=== PATIENT | male | born 1955 | race Caucasian/White ===

== ENCOUNTER 2020-06-29 08:22 | Day surgery (SDC) | payer OTHER ==
--- NOTE | 2020-06-22 08:23 | HP ---
DATE OF SURGERY: 06/29/2020 HISTORY OF PRESENT ILLNESS: The patient presents with complaints of umbilical hernia. He has some discomfort in the umbilical region and does have a hernia that will reproduce today on exam. It bothers him and he wishes to have this fixed. PAST MEDICAL HISTORY: None. PAST SURGICAL HISTORY: Knee surgery. ALLERGIES: NKDA. MEDICATIONS: Tylenol, hydroxyzine, Aleve, Topamax as needed. FAMILY HISTORY: None reported. SOCIAL HISTORY: Reports chewing tobacco and one can of alcohol per day. REVIEW OF SYSTEMS: CONSTITUTIONAL: Denies fever or chills. CHEST: Denies shortness of breath. CVS: Denies chest pain. ABDOMEN: Reports umbilical hernia pain. Denies nausea, vomiting, diarrhea, constipation or rectal bleeding. INTEGUMENTARY: Negative. PHYSICAL EXAMINATION: GENERAL: No acute distress. CHEST: Nonlabored. No shortness of breath. CVS: Regular rate and rhythm. ABDOMEN: Soft, reducible umbilical hernia. EXTREMITIES: No edema. NEUROLOGIC: Alert. PSYCHIATRIC: Appropriate. IMPRESSION: Symptomatic umbilical hernia. PLAN: Umbilical hernia repair with mesh by Dr. Diego Garcia. As dictated by April Bianchi NP.
[~2020-06-29 08:22] MED LIST: Lactated Ringers 1,000 ML IV ONE; Sensorcaine 0.25% 10 ML ONE
[2020-06-29] MEDS ORDERED: Lactated Ringers 1,000 ML IV SCH (09:00)
[2020-06-29] MEDS ORDERED: CEFAZOLIN 2 GM-D5W BAG** 2 GM/50 ML ML IV SCH (09:00)
[2020-06-29 09:53] LABS: ALBUMIN 4.2 g/dL (3.5-5.0); ALKALINE PHOSPHATASE 120 U/L (38-126); ANION GAP 10.1 MEQ/L (5-15); BLOOD UREA NITROGEN 14 mg/dL (9-20); CHLORIDE 107 mmol/L (98-107); Calcium 9.5 mg/dL (8.4-10.2); Carbon Dioxide 26 mmol/L (22-30); Creatinine 1 0.93 mg/dL (0.66-1.25); EST GLOMERULAR FILTRATION RATE > 60.0 ML/MIN; Glucose 132 mg/dL (74-106); Potassium 3.9 mmol/L (3.5-5.1); SGOT/AST 22 U/L (17-59); SGPT/ALT 21 U/L (0-50); SODIUM 139 mmol/L (137-145); Total Protein 6.9 g/dL (6.3-8.2)
[2020-06-29] MEDS ORDERED: Versed 2 MG/2 ML Injection ONE (10:05)
[2020-06-29] MEDS ORDERED: SUBLIMAZE 250 MCG/5 ML ONE (10:05)
[2020-06-29] MEDS ORDERED: Quelicin Fliptop 200 MG/10 ML ONE (10:05)
[2020-06-29] MEDS ORDERED: Zemuron 100 MG/10 ML ONE (10:05)
[2020-06-29] MEDS ORDERED: DIPRIVAN 200 MG/20 ML IV ONE (10:05)
[2020-06-29] MEDS ORDERED: KEFZOL 1 GM ONE (11:27)
[2020-06-29] MEDS ORDERED: BRIDION 200MG/2ML IV ONE (11:55)
[2020-06-29] MEDS ORDERED: MORPHINE SULFATE 10 MG/ML ONE (12:23)
[2020-06-29] MEDS ORDERED: SUBLIMAZE 100 MCG/2 ML ONE (12:42)
[2020-06-29] MEDS ORDERED: Lactated Ringers 1,000 ML IV ONE (12:45)
--- NOTE | 2020-06-29 12:56 | OP ---
SURGERY DATE/TIME: 06/29/2020 1132 PREOPERATIVE DIAGNOSIS: Symptomatic incarcerated umbilical hernia. POSTOPERATIVE DIAGNOSIS: Symptomatic incarcerated umbilical hernia. PROCEDURE: Umbilical herniorrhaphy repair primary, no mesh. SURGEON: Diego Garcia M.D. ANESTHESIA: General. COMPLICATIONS: None. CONDITION: Stable. INDICATION: The patient has a moderate sized symptomatic umbilical hernia, possible mesh was discussed preoperatively. DESCRIPTION OF PROCEDURE: He was taken to surgery. General anesthetic. Routine prep and drape. There was incarceration of omentum that was reduced. Hernia sac was reduced. The defect was actually 1.75 cm by 1 cm. It was able to be pulled together transversely without tension with six sutures of 0 Prolene which were all placed and all tied down. It was reinforced with two figure-of-8 0 Vicryl on top of this. 4-0 Vicryl, compressive umbilical dressing, Steri- Strips. The patient tolerated the procedure satisfactorily.
[2020-06-29] MEDS ORDERED: TYLENOL EXTRA STRENGTH 500 MG PO STA (14:17)
[2020-06-29 15:01] VITALS: BP 148/86; PULSE 62; O2SAT 96
== END 2020-06-29 14:35 | disposition home or self-care (01) ==
LOC: SDC 08:22
PROVIDERS: ATTEND Surgery
DX: K42.0 Umbilical hernia with obstruction, without gangrene (principal); Z79.899 Other long term (current) drug therapy
CPT/HCPCS: 36415; 80053; 93005; J0330; J0690; J2250; J2270; J2704; J3010; L0625; A9270-GY

== ENCOUNTER 2022-01-04 09:37 | Emergency (ER) | payer OTHER ==
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
[2022-01-04 10:51] VITALS: BP 156/87; PULSE 66
[2022-01-04] MEDS ORDERED: Cyclobenzaprine 10 MG PO ONE (11:09)
[2022-01-04] MEDS ORDERED: PERCOCET TABLET 5/325MG PO STA (11:09)
[2022-01-04] MEDS ORDERED: Cyclobenzaprine 10 MG ONE (11:12)
[2022-01-04] MEDS ORDERED: PERCOCET TABLET 5/325MG ONE (11:12)
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
[2022-01-04 11:44] VITALS: O2SAT 99
== END 2022-01-04 12:18 | disposition home or self-care (01) ==
LOC: ED 09:37
DX: M54.2 Cervicalgia (principal); M54.6 Pain in thoracic spine; V53.5XXA Driver of pick-up truck or van injured in collision with car, pick-up truck or van in traffic accident, initial encounter; Z28.310 Unvaccinated for COVID-19; Z79.52 Long term (current) use of systemic steroids
CPT/HCPCS: 72125; 72128; 99285; A9270-GY

== ENCOUNTER 2022-02-05 11:37 | Emergency (ER) | payer OTHER ==
--- NOTE | 2022-02-05 12:17 | XRAY ---
Indication: Thumb erythema. Comparison: None 3 view left hand demonstrates punctate foreign body lateral to 1st MCP, mild 1st metacarpal multangular scaphoid degenerative changes, and radiocarpal joint space loss. No other bony, articular, or soft tissue abnormalities.
--- NOTE | 2022-02-05 12:36 | ERPHSYRPT ---
- History of Present Illness Source: patient Exam Limitations: no limitations Patient Subjective Stated Complaint: L hand injury 2 days ago Triage Nursing Assessment: pt to ED c/o L hand pain x2 days. pt states he jammed 5th finger on door when he tripped. rates 5/10 pain. limited ROM, noted swelling in L hand. pt states the steroid he took this morning might have brought swelling down slightly. Physician History: Pt hit L hand on door jam 2 days ago at his house when he tripped over his cat. Pt is R handed and denies other/previous injuries. Occurred: days ago (2 days ago) Method of Injury: fell (Tripped over cat) Severity of Pain-Max: moderate Severity of Pain-Current: mild Extremities Pain Location: hand: left Modifying Factors: Improves With: nothing, movement Associated Symptoms: none Allergies/Adverse Reactions: gabapentin [From Neurontin] Allergy (Verified 02/05/22 11:46) Rash Home Medications: Newton-3 Fatty Acids [Newton-3] 1,000 mg PO DAILY 02/05/22 [History] Hx Tetanus, Diphtheria Vaccination/Date Given: Yes Hx Influenza Vaccination/Date Given: No Hx Pneumococcal Vaccination/Date Given: No Immunizations Up to Date: Yes Travel Risk - International Travel Have you traveled outside of the country in past 3 weeks: No - Coronavirus Screening Are you exhibiting any of the following symptoms?: No Close contact with a COVID-19 positive Pt in past 14-21 Days: No - Vaccine Status Have you recieved a Covid-19 vaccination: No - Review of Systems Constitutional: No Symptoms Eyes: No Symptoms Ears, Nose, & Throat: No Symptoms Respiratory: No Symptoms Cardiac: No Symptoms Abdominal/Gastrointestinal: No Symptoms Skin: No Symptoms Neurological: No Symptoms Psychological: No Symptoms Endocrine: No Symptoms Hematologic/Lymphatic: No Symptoms Immunological/Allergic: No Symptoms - Past Medical History Pertinent Past Medical History: Yes Neurological History: Migraines ENT History: No Pertinent History Cardiac History: No Pertinent History Respiratory History: No Pertinent History Endocrine Medical History: Hypoglycemia Musculoskeletal History: No Pertinent History, Other GI Medical History: No Pertinent History History: No Pertinent History Psycho-Social History: No Pertinent History Male Reproductive Disorders: No Pertinent History Other Medical History: LEFT KNEE SURGERY 2004, TONSILLS AT AGE OF 9 Pt does not have any diagnosed kidney problems, but is going to be seeing a kidney specialist in the future. - Past Surgical History Past Surgical History: Yes Neuro Surgical History: No Pertinent History Cardiac: No Pertinent History Respiratory: No Pertinent History Gastrointestinal: No Pertinent History Genitourinary: No Pertinent History Musculoskeletal: Orthopedic Surgery Male Surgical History: No Pertinent History Other Surgical History: tonsilectomy. knee surgery 05 - Social History Smoking Status: Never smoker Exposure to second hand smoke: No Alcohol Use: None Drug Use: none Patient Lives Alone: No Significant Family History: no pertinent family hx - Nursing Vital Signs Nursing Vital Signs: Initial Vital Signs Temperature 97.5 F 02/05/22 11:47 Pulse Rate 67 02/05/22 11:47 Respiratory Rate 18 02/05/22 11:47 Blood Pressure 130/99 02/05/22 11:47 O2 Sat by Pulse Oximetry 95 02/05/22 11:47 Pain Scale Pain Intensity 3 Hypertensive - Physical Exam General Appearance: no apparent distress Eyes, Ears, Nose, Throat Exam: normal ENT inspection Neck Exam: normal inspection, non-tender, supple, full range of motion, No Brudzinski, No Kernig's, No meningismus Cardiovascular/Respiratory Exam: chest non-tender, normal breath sounds, regular rate/rhythm, heart sounds normal Back Exam: normal inspection, normal range of motion, No CVA tenderness, No vertebral tenderness Shoulder Exam: normal inspection Elbow/Forearm Exam: normal inspection Wrist Exam: normal inspection Hand Exam: bone tenderness (TTP L 5th MCP joint and slightly distal/proximal to the MCP/Small ecchymotic area/Mild edema/Good radial pulse, distal sensation, and capillary return) Neuro/Tendon Exam: normal sensation, normal motor functions, normal tendon functions, responds to pain, no evidence tendon injury, No motor deficit, No sensory deficit Mental Status Exam: alert, oriented x 3, cooperative Skin Exam: normal color, warm, dry SpO2 Interpretation: normal SpO2: 95 O2 Delivery: Room Air - Course Nursing assessment & vital signs reviewed: Yes - Radiology Exams Hand X-ray Interpretation: Discussed w/ radiologist (L hand-FB lateral to 1st MCP joint(Pt non-tender at this area)/No Fx) Ordered Tests: Active Orders 24 hr Category Date Time Status HAND (MINIMUM 3 VIEWS) Stat Exams 02/05/22 12:09 Completed - Progress Progress Note: 02/05/22 12:36 Pt refused pain meds FB next to 1st MCP joint appears to be old, as pt NTTP at this area wo entrance wound/lesion. Counseled pt/family regarding: diagnosis, need for follow-up, rad results - Departure Departure Disposition: Home Clinical Impression: Contusion of left hand Condition: Stable Critical Care Time: No Referrals: YANG CHERRY [employer]ANER [Primary Care Provider] - Follow up/PCP as directed Instructions: Contusion (DC) Additional Instructions: Motrin/Tylenol for pain Follow up with your family MD for continued pain
[2022-02-05 12:49] VITALS: BP 134/88; PULSE 71
[2022-02-05 13:09] VITALS: O2SAT 95
== END 2022-02-05 12:49 | disposition home or self-care (01) ==
LOC: ED 11:37
DX: S60.222A Contusion of left hand, initial encounter (principal); W22.09XA Striking against other stationary object, initial encounter; Z28.310 Unvaccinated for COVID-19
CPT/HCPCS: 73130; 99282

== ENCOUNTER 2022-10-02 06:51 | Day surgery (SDC) | payer OTHER ==
[2022-10-02] MEDS ORDERED: Decadron 4 MG INJ IV ONE (06:52)
[2022-10-02] MEDS ORDERED: LIDOCAINE HCL 2% 100 MG/5 ML IJ ONE (06:52)
[2022-10-02] MEDS ORDERED: DIPRIVAN 200 MG/20 ML IV ONE (08:23)
--- NOTE | 2022-10-02 09:37 | XRAY ---
Indication: Right C2-C5 MBB. Intraoperative fluoroscopy provided for 25 seconds. 2 digital spot image submitted for interpretation demonstrates posterior needle tips projecting over the expected right C2-C5 nerve roots. Correlate with intraoperative findings/report.
[2022-10-02] MEDS ORDERED: Lactated Ringers 1,000 ML IV ONE (14:43)
== END 2022-10-02 08:45 | disposition home or self-care (01) ==
LOC: SDC-PAIN 06:51
PROVIDERS: ATTEND Psychiatry & Neurology Pain Medicine
DX: M47.812 Spondylosis without myelopathy or radiculopathy, cervical region (principal); Z79.899 Other long term (current) drug therapy
CPT/HCPCS: 64490; 64491; 64492; 72040; 77002; J1100; J2704

== ENCOUNTER 2022-11-20 09:20 | Day surgery (SDC) | payer OTHER ==
[2022-11-20] MEDS ORDERED: Decadron 4 MG INJ IV ONE (09:21)
[2022-11-20] MEDS ORDERED: BUPIVACAINE 0.5% VIAL IJ ONE (09:21)
[2022-11-20] MEDS ORDERED: DIPRIVAN 200 MG/20 ML IV ONE (10:38)
[2022-11-20] MEDS ORDERED: Versed 2 MG/2 ML Injection ONE (10:59)
[2022-11-20] MEDS ORDERED: Lactated Ringers 1,000 ML IV ONE (13:10)
--- NOTE | 2022-11-20 18:31 | XRAY ---
Indication: Right C2-C5 MBB. Intraoperative fluoroscopy provided for 27 seconds. 2 digital spot image submitted for interpretation demonstrates posterior needle tips projecting over the expected right C2-C5 nerve roots. Correlate with intraoperative findings/report.
--- NOTE | 2022-11-20 18:56 | XRAY ---
27 seconds of fluoroscopy was used in surgery for a right C2-C5 MBB.
== END 2022-11-20 11:25 | disposition home or self-care (01) ==
LOC: SDC-PAIN 09:20
PROVIDERS: ATTEND Psychiatry & Neurology Pain Medicine
DX: M47.812 Spondylosis without myelopathy or radiculopathy, cervical region (principal); Z79.899 Other long term (current) drug therapy
CPT/HCPCS: 64490; 64491; 64492; 72040; 77002; 82947; J1100; J2250; J2704

== ENCOUNTER 2022-12-25 12:39 | Day surgery (SDC) | payer OTHER, MEDICARE ==
[2022-12-25] MEDS ORDERED: Decadron 4 MG INJ IV ONE (12:40)
[2022-12-25] MEDS ORDERED: LIDOCAINE HCL 2% 100 MG/5 ML IJ ONE (12:40)
[2022-12-25] MEDS ORDERED: DIPRIVAN 200 MG/20 ML IV ONE (15:05)
[2022-12-25] MEDS ORDERED: BENADRYL 50 MG/ML ONE (15:20)
[2022-12-25] MEDS ORDERED: Zofran 4 MG/2 ML VIAL ONE (15:21)
[2022-12-25] MEDS ORDERED: TORAdol 30 mg Injection ONE (15:21)
--- NOTE | 2022-12-25 16:35 | XRAY ---
Indication: Left C2-C4 MBB. Intraoperative fluoroscopy provided for 13 seconds. 2 digital spot images submitted for interpretation demonstrates posterior needle tips projecting over the expected left C2-C4 nerve roots. Correlate with intraoperative findings/report.
[2022-12-25] MEDS ORDERED: Lactated Ringers 1,000 ML IV ONE (18:03)
--- NOTE | 2022-12-26 09:53 | XRAY ---
13 seconds of fluoroscopy was used in surgery for a left C2-C4 MBB.
== END 2022-12-25 15:45 | disposition home or self-care (01) ==
LOC: SDC-PAIN 12:39
PROVIDERS: ATTEND Psychiatry & Neurology Pain Medicine
DX: M47.812 Spondylosis without myelopathy or radiculopathy, cervical region (principal); Z79.899 Other long term (current) drug therapy
CPT/HCPCS: 64490; 64491; 72040; 77002; J1100; J1200; J1885; J2405; J2704

== ENCOUNTER 2023-03-05 13:09 | Day surgery (SDC) | payer MEDICARE ==
[2023-03-05] MEDS ORDERED: Depo-Medrol 40 MG/ML IM ONE (13:10)
[2023-03-05] MEDS ORDERED: BUPIVACAINE 0.5% VIAL IJ ONE (13:10)
[2023-03-05] MEDS ORDERED: LIDOCAINE HCL 1% 50 MG/5 ML VL PF IJ ONE (13:10)
[2023-03-05] MEDS ORDERED: DIPRIVAN 200 MG/20 ML IV ONE (15:29)
--- NOTE | 2023-03-05 16:45 | XRAY ---
Indication: Right C2-C4 RFA. Intraoperative fluoroscopy provided for 22 seconds. 3 digital spot image submitted for interpretation demonstrates posterior needle tips projecting over the expected right C2-C4 nerve roots. Correlate with intraoperative findings/report.
--- NOTE | 2023-03-05 16:47 | XRAY ---
22 seconds of fluoroscopy was used in surgery for a right C2-C4 RFA.
[2023-03-05] MEDS ORDERED: Lactated Ringers 1,000 ML IV ONE (17:25)
== END 2023-03-05 16:05 | disposition home or self-care (01) ==
LOC: SDC-PAIN 13:09
PROVIDERS: ATTEND Psychiatry & Neurology Pain Medicine
DX: M47.812 Spondylosis without myelopathy or radiculopathy, cervical region (principal)
CPT/HCPCS: 64633; 64634; 72040; 77002; J1030; J2001; J2704

== ENCOUNTER 2023-03-12 13:17 | Day surgery (SDC) | payer MEDICARE ==
[2023-03-12] MEDS ORDERED: DIPRIVAN 200 MG/20 ML IV ONE ×2 (15:18→15:30)
[2023-03-12] MEDS ORDERED: Lactated Ringers 1,000 ML IV ONE (15:37)
--- NOTE | 2023-03-12 16:44 | XRAY ---
Indication: Left C2-C4 RFA. Intraoperative fluoroscopy provided for 29 seconds. 6 digital spot image submitted for interpretation demonstrates posterior needle tips projecting over the expected left C2-C4 nerve roots. Correlate with intraoperative findings/report.
--- NOTE | 2023-03-12 16:47 | XRAY ---
29 seconds of fluoroscopy was used in surgery for a left C2-C4 RFA.
== END 2023-03-12 15:59 | disposition home or self-care (01) ==
LOC: SDC-PAIN 13:17
PROVIDERS: ATTEND Psychiatry & Neurology Pain Medicine
DX: M47.812 Spondylosis without myelopathy or radiculopathy, cervical region (principal)
CPT/HCPCS: 64635; 64636; 72040; 77002; J2704

== ENCOUNTER 2025-03-31 09:57 | Day surgery (SDC) | payer MEDICARE ==
--- NOTE | 2025-03-31 07:19 | HP ---
HISTORY AND PHYSICAL HISTORY OF PRESENT ILLNESS: Patient is a 69-year-old male with complaints of rectal bleeding. At times, it does fill the toilet bowl. Last scope was 7 years ago. He does have some occasional constipation. He has no family history of colon cancer. He has hemorrhoids. He would like to get them addressed and get his colonoscopy done at this time. PAST MEDICAL HISTORY: Hypertension, arthritis, gout, depression, erectile dysfunction, insomnia. HOME MEDICATIONS: Magnesium, hawthorn sparks, Tylenol, ibuprofen, stool softener, Ventolin, Ambien. ALLERGIES: Gabapentin and Neurontin. PAST SURGICAL HISTORY: Knee arthroplasty, tonsillectomy. SOCIAL HISTORY: Negative. FAMILY HISTORY: Heart disease, REVIEW OF SYSTEMS: CONSTITUTIONAL: Denies fever or chills. CHEST: Denies shortness of breath. CARDIOVASCULAR: Denies chest pain. ABDOMEN: Denies abdominal pain. PHYSICAL EXAMINATION: GENERAL: No acute distress. CARDIOVASCULAR: Regular rate and rhythm. RESPIRATORY: Nonlabored. No shortness of breath. ABDOMEN: Soft. ASSESSMENT: Rectal bleeding and hemorrhoids. PLAN: Colonoscopy and hemorrhoidectomy with Dr. Diego Garcia. This report was dictated for Dr. Garcia by April Bianchi NP.
[2025-03-31] MEDS ORDERED: EXPAREL 133 MG/10 ML VIAL IJ ONE (09:58)
[2025-03-31] MEDS ORDERED: Lactated Ringers 1,000 ML IV ONE (10:19)
[2025-03-31] MEDS ORDERED: Lactated Ringers 1,000 ML IV SCH (10:30)
[2025-03-31 10:34] VITALS: TEMP 96.9; O2SAT 96
[2025-03-31 11:02] LABS: Calcium 9.2 mg/dL (8.4-10.2); Carbon Dioxide 23.0 mmol/L (22-30); Creatinine 1 1.14 mg/dL (0.66-1.25); EST GLOMERULAR FILTRATION RATE 70.5 ML/MIN; Glucose 129.0 mg/dL (74-106); Potassium 3.6 mmol/L (3.5-5.1)
[2025-03-31] MEDS ORDERED: propofoL IV ONE (13:14)
[2025-03-31] MEDS ORDERED: Zofran 4 MG/2 ML VIAL ONE (13:20)
[2025-03-31] MEDS ORDERED: ROCURONIUM BROMIDE IV ONE (13:21)
[2025-03-31] MEDS ORDERED: SUBLIMAZE 250 MCG/5 ML ONE (13:38)
[2025-03-31] MEDS ORDERED: BRIDION 200MG/2ML IV ONE (13:54)
[2025-03-31] MEDS ORDERED: TORAdol 30 mg Injection ONE (13:54)
[2025-03-31] MEDS ORDERED: Marcaine Mpf 0.5% Vial 30 Ml ONE (14:17)
[2025-03-31] MEDS ORDERED: SUBLIMAZE 100 MCG/2 ML ONE (14:46)
[2025-03-31] MEDS ORDERED: DILAUDID 0.5 MG/0.5 ML SYRINGE ONE ×4 (14:46→15:48)
[2025-03-31 16:22] VITALS: RESP 18
[2025-03-31 16:28] VITALS: BP 142/96; PULSE 104
--- NOTE | 2025-04-04 13:41 | OP ---
SURGERY DATE/TIME: 03/31/2025 [id number] PREOPERATIVE DIAGNOSES: 1) Severe hemorrhoid. 2) Patient requiring screening. POSTOPERATIVE DIAGNOSES: 1) Severe hemorrhoid. 2) Patient requiring screening. PROCEDURES: 1) Complex open hemorrhoidectomy including 3 internals and 3 externals. 2) Colonoscopic examination to cecum. SURGEON: Diego Garcia MD ANESTHESIA: General. COMPLICATIONS: None. CONDITION: Stable. DESCRIPTION OF PROCEDURE AND FINDINGS: Patient brought to the operating room. General anesthetic, lithotomy, routine prep and drape. There were 3 quadrants of severe hemorrhoids, 1 o'clock, 5, 7 and 11. The 5 o'clock taken with a base suture and 0 chromic. The external component taken with a clamp and [id number] suture. The internal component taken with a clamp and an [id number] suture. This was repeated at the 5 location and the 7 o'clock location for a total of 3 internals, 3 externals. All had a base suture of 0 chromic and all were clamped, amputated, and closed with [id number] sutures. A fingertip and a half could still be placed in the anal canal. Long-lasting Marcaine 10 mL and 10 mL of short-lasting Marcaine was placed circumferential. The colonoscope was placed and advanced over to the cecum. The prep was good to fair, it certainly was not excellent but within the limits of the prep, it was basically normal. There was mild colonic diverticulosis and the hemorrhoidal repair was satisfactory at the anus. The patient tolerated the procedure satisfactory. Findings discussed with the in the waiting room.
== END 2025-03-31 16:40 | disposition home or self-care (01) ==
LOC: SDC 09:57
PROVIDERS: ATTEND Surgery
DX: Z12.11 Encounter for screening for malignant neoplasm of colon (principal); K64.4 Residual hemorrhoidal skin tags; K64.8 Other hemorrhoids; I10 Essential (primary) hypertension; K57.30 Diverticulosis of large intestine without perforation or abscess without bleeding
CPT/HCPCS: 36415; 46260; 80048; 93005; G0121